=== PATIENT | female | born 1965 | race Caucasian/White ===

== ENCOUNTER 2019-08-12 11:44 | Emergency (ER) | payer OTHER ==
[~2019-08-12] VITALS: Ht 160 cm; Wt 95.7 kg
[2019-08-12] MEDS ORDERED: [UNRECOGNIZED DRUG - REMARK] (12:17)
== END 2019-08-12 15:19 | disposition home or self-care (01) ==
LOC: ER 11:44
DX: R10.84 Generalized abdominal pain (principal)

== ENCOUNTER 2020-07-17 09:26 | Emergency (ER) | payer OTHER ==
[~2020-07-17] VITALS: Ht 160 cm; Wt 100.7 kg
[~2020-07-17 09:26] MED LIST: [UNRECOGNIZED DRUG - REMARK]
[2020-07-17] MEDS ORDERED: KETO10TA2 PO (13:00)
[2020-07-17] MEDS ORDERED: NORFLEX100MG PO (13:00)
== END 2020-07-17 13:17 | disposition home or self-care (01) ==
LOC: ER 09:26
DX: M54.5 Low back pain (principal)